=== PATIENT | female | born 1950 | race Caucasian/White ===

== ENCOUNTER 2022-08-04 21:49 | Emergency (ER) | payer MEDICARE | END 2022-08-04 22:52 | disposition home or self-care (01) | LOC: JP.ED 21:49 | DX: J18.9 Pneumonia, unspecified organism (principal); E78.00 Pure hypercholesterolemia, unspecified; Z79.899 Other long term (current) drug therapy | CPT/HCPCS: 36415; 71046; 71046-26; 85025; 86140; 93010; 99284; 99285 ==